=== PATIENT | female | born 1940 | race Asian ===

== ENCOUNTER 2025-07-22 00:38 | Inpatient (IN) | payer MEDICARE, MEDICAID, SELFPAY ==
[2025-07-22] VITALS (16 sets, daily range): BP systolic 99–138; BP diastolic 52–67; PULSE 56–112; RESP 14–96; TEMP 36.4–38; O2SAT 92–100; BMI 18.0
--- NOTE | 2025-07-22 00:53 | EDNOTE_ITS ---
ED SOB =RME/HPI General Chief Complaint: Shortness of Breath/Dyspnea Stated Complaint: SOB Time Seen by Provider: 07/22/25 01:11 Arrival date/time: 07/22/25 00:38 RME / HPI MD Complaint: shortness of breath Known history of: COPD Associated symptoms: cough and wheezing RME / HPI Narrative: See [facility] for Dr. Diego's HPI Documentation. Related Data Home Medications ?Medication ?Instructions ?Recorded ?Confirmed atorvastatin 10 mg tablet (Lipitor) 40 mg PO HS #0 tab s 07/31/16 07/22/25 albuterol sulfate 2.5 mg/3 mL 2.5 mg continuous nebuli zation Q8H 07/22/25 07/22/25 (0.083 %) solution for nebulization PRN shortness of b reath or wheezing amlodipine 10 mg tablet 10 mg PO .QD 07/22/25 celecoxib 200 mg capsule 400 mg PO Q12H 07/22/2506/26 Previous Rx's ?Medication ?Instructions ?Recorded apixaban 5 mg tablet (Eliquis) 5 mg PO BID #60 tabs Allergies Allergy/AdvReac Type Severity Reaction Status Date / Time No Known Allergies Allergy Unverified 07/22/25 01:25 Review of Systems Review of Systems Systems Reviewed: All systems reviewed, normal except as documented Past Medical History Past Medical History CARDIAC: Positive Cardiac Disorders, Atrial Fibrillation, Hypercholesterolemia and Hypertension RESPIRATORY: Positive Chronic Obstructive Pulmonary Disease (COPD) and Asthma Social History SECOND HAND EXPOSURE: Yes (casino smoke) ED Exam Narrative Physical exam: See [facility] for Dr. Diego's Physical Exam Documentation. Course Quality Measures none Orders Category Date Time Status CT Screening NOW Care 07/22/25 00:53 Active EKG (ED ONLY) *Do not use* NOW Care 07/22/25 00:53 Completed Saline [Insert IV] NOW Care 07/22/25 00:51 Completed Straight [In and Out Catheter] X1 Care 07/22/25 00:51 Completed EKG (ED Only) Stat Exams 07/22/25 00:53 Draft XR chest 1V portable Stat Exams 07/22/25 00:53 Completed ABG [Arterial Blood Gas] Stat Lab 07/22/25 01:50 Completed BNP [B-Type Natriuretic Peptide] Stat Lab 07/22/25 01:32 Completed Bilirubin,Direct Stat Lab 07/22/25 01:32 Completed Blood Culture (Lab) Stat Lab 07/22/25 02:00 Received CBC Stat Lab 07/22/25 01:32 Completed CMP [Comprehensive Metabolic Panel] Stat Lab 07/22/25 01:32 Completed COVID-19 Antigen (In-House) Stat Lab 07/22/25 01:41 Completed CRP [C-Reactive Protein] Stat Lab 07/22/25 01:32 Completed D-Dimer Stat Lab 07/22/25 01:32 Completed ESR [Sed Rate (ESR)] Stat Lab 07/22/25 01:32 Completed Hemoglobin A1C [Glycohemoglobin w (eAG)] Stat Lab 07/22/25 01:32 Completed Influenza A & B Rapid Panel Stat Lab 07/22/25 01:41 Completed Lactate (Lactic Acid) Stat Lab 07/22/25 01:32 Completed Lipase Stat Lab 07/22/25 01:32 Completed Magnesium Stat Lab 07/22/25 01:32 Completed Procalcitonin Stat Lab 07/22/25 01:32 Completed TSH [Thyroid Stimulating Hormone] Stat Lab 07/22/25 01:32 Completed Troponin I Stat Lab 07/22/25 01:32 Completed UA, C/S IF [Urinalysis, C/S if Indicated] Stat Lab 07/22/25 01:39 Completed Acetaminophen Tab [Tylenol Tab] Med 07/22/25 01:54 Discontinued 650 mg PO X1 ONE DiphenhydrAMINE INJ [Benadryl Inj] Med 07/22/25 00:52 Discontinued 25 mg IVP X1 STA Ibuprofen Tab [Motrin Tab] Med 07/22/25 01:54 Discontinued 400 mg PO X1 ONE Levalbuterol Rt [Xopenex Rt Sania] Med 07/22/25 00:52 Discontinued 7.5 mg INH X1 ONE Magnesium Sulfate 2 GM Ivpb [Magnesium Sulfate Ivpb] Med 07/22/25 00:52 Discontinued 2 gm in 50 ml IV X1 MethylPREDNISolone.* [SoluMEDROL Inj] Med 07/22/25 00:52 Discontinued 125 mg IVP X1 ONE Sodium Chloride Rt Sania 0.9% [NS Rt Sania 0.9%] Med 07/22/25 00:52 Active 3 ml INH PRN PRN Vital Signs Vital signs: Vital Signs Temperature 98.6 F 07/22/25 00:53 Pulse Rate 103 H 07/22/25 00:53 Respiratory Rate 18 07/22/25 00:53 Blood Pressure 99/66 07/22/25 00:53 Pulse Oximetry (%) 98 07/22/25 00:53 Oxygen Delivery Method Nasal Cannula 07/22/25 00:53 Oxygen Flow Rate 2 07/22/25 00:53 Shortness of Breath / Dyspnea MDM Narrative MDM Narrative:: This section includes all my notes and documentations, including HPI, PE, and ED course. Reji Diego MD HPI: 84 y/o female with Hx of COPD, Asthma, Atrial Fibrillation, Hypercholesterolemia, and HTN BIBA from home with about a week history of worsening cough, productive cough, purulent sputum, and dyspnea. No other complaints. ROS: All negative except as documented in HPI. Physical Exam: General: Alert and oriented. Hacking cough noted. Fever noted. Eyes: Conjunctivae and lids clear. ENT: No nasal congestion. Neck: Supple. Heart: RRR. Lungs: In respiratory distress. Decreased air movement with severe diffuse wheezing. Abdomen: Soft and nontender. Back: No CVA tenderness. Skin: Warm and dry. Neuro: Alert and oriented X 3. I reviewed EMS notes. I reviewed all returned diagnostic test results: My interpretation of the EKG is: Sinus rhythm (103 bpm) with nonspecific ST-T changes. My interpretation of the chest x-ray is infiltrates. Blood tests and urine tests remarkable for WBC 11.5, ESR 64, CRP 11.1. Covid/Influenza are negative. At this point, diagnoses include: COPD Exacerbation Pneumonia Treatment here included: Magnesium Sulfate 2 G IV Benadryl 25 mg IV Xopenex 7.5 mg neb treatment SoluMedrol 125 mg IV Motrin 400 mg SoluMedrol 125 mg IV Tylenol 650 mg No significant improvement noted. I discussed the case with our hospitalist. About the presentation and exam and diagnostics and treatments here. And need of further care in the hospital. Will accept the patient. Reji Diego MD Patient data External records reviewed:: [facility] previous records (Reviewed prior ED records from 09/16/23. Patient was seen for COPD (chronic obstructive pulmonary disease).) and EMS form Clinical information provided by:: patient and EMS Social determinants that could affect healthcare access:: none Patient has the following chronic illnesses:: Atrial Fibrillation, Hypercholesterolemia, Hypertension, Chronic Obstructive Pulmonary Disease (COPD) and Asthma How is presenting disease/condition affected by chronic disease/condition?: exacerbated by Evaluation data The following diagnostics were reviewed and interpreted by me:: lab results, radiology exam(s) and EKG tracing(s) (My interpretation of the EKG is: Sinus rhythm (103 bpm) with nonspecific ST-T changes. Reji Diego MD) Lab and/or radiology exams considered but not ordered:: None Interpretation Summary: I reviewed all returned diagnostic test results: My interpretation of the EKG is: Sinus rhythm (103 bpm) with nonspecific ST-T changes. My interpretation of the chest x-ray is infiltrates. Blood tests and urine tests remarkable for WBC 11.5, ESR 64, CRP 11.1. Covid/Influenza are negative. Medications / Prescriptions Medications or Prescriptions considered but not ordered:: None Medication administrations:: Medication Administration History Acetaminophen (Acetaminophen 325 Mg Tablet) 650 mg PO Q6H PRN PRN Reason: Fever >100.4 or pain 1-3 Stop: 08/21/25 03:29 Hydrocodone Bitart/Acetaminophen (Hydrocodone/Apap 5/325 Tablet) 1 tab PO Q4HR PRN PRN Reason: PAIN SCALE 4-6 (Moderate Stop: 07/27/25 03:29 Albuterol/Ipratropium (Albuterol/Ipratropium (Duoneb) Rt Sania 3 Ml Nebu) 3 ml INH Q6HRRT [facility] Stop: 08/21/25 06:59 Last Admin: 07/22/25 18:54 Dose: 3 ml Documented By: Admin: 07/22/25 13:49 Dose: 3 ml Documented By: Admin: 07/22/25 06:47 Dose: 3 ml Documented By: IAIN Amlodipine Besylate (Amlodipine Besylate 5 Mg Tablet) 10 mg PO QDAY [facility] Stop: 08/21/25 08:59 Last Admin: 07/22/25 09:23 Dose: 10 mg Documented By: PATRICE Apixaban (Apixaban 2.5 Mg Tablet) 2.5 mg PO BID [facility] Stop: 08/21/25 20:59 Last Admin: 07/22/25 21:22 Dose: 2.5 mg Documented By: DARCI Atorvastatin Calcium (Atorvastatin Calcium 10 Mg Tablet) 20 mg PO QDAY [facility] Stop: 08/21/25 08:59 Last Admin: 07/22/25 09:24 Dose: 20 mg Documented By: PP Dextrose (Dextrose 50%-Water Inj 50 Ml Syringe) 25 ml IV Q15MIN PRN PRN Reason: BG 50-70 responsive npo pt Stop: 08/21/25 06:18 Dextrose (Dextrose 50%-Water Inj 50 Ml Syringe) 50 ml IV Q15MIN PRN PRN Reason: BG <50 OR BG <70 & pt unresponsive Stop: 08/21/25 06:18 Glucagon (Glucagon Inj 1 Mg Vial) 1 mg IM Q15MIN PRN PRN Reason: BG <70, and no IV access Azithromycin 500 mg/ Sodium (Chloride) 250 mls @ 250 mls/hr IV QDAY [facility] Stop: 07/29/25 03:35 Last Admin: 07/22/25 10:13 Dose: 250 mls/hr Documented By: Infusion: 07/22/25 05:37 Dose: Infused Documented By: Admin: 07/22/25 04:35 Dose: 250 mls/hr Documented By: CALEB Ceftriaxone Sodium/Dextrose (Rocephin/D5w 1gm Iv Premix) 1 gm in 50 mls @ 100 mls/hr IV QDAY [facility] Stop: 07/29/25 10:45 Last Admin: 07/22/25 11:36 Dose: 100 mls/hr Documented By: PATRICE Insulin Human Lispro (Insulin Lispro (Admelog) 1 Unit/0.01 Ml Unit) 0 unit SC [facility]; Protocol Stop: 08/21/25 07:29 Last Admin: 07/22/25 16:16 Dose: Not Given Documented By: PP Non-Admin Reason: Per Protocol Admin: 07/22/25 11:36 Dose: 2 unit Documented By: PP Co-signed By: DAPHNEY Admin: 07/22/25 07:19 Dose: 2 unit Documented By: BY Co-signed By: CHELLY Morphine Sulfate (Morphine Sulf Inj 4 Mg/Ml Vial) 1 mg IVP Q4HR PRN PRN Reason: PAIN SCALE 7-10 (Severe Stop: 07/27/25 03:29 Ondansetron HCl (Ondansetron Inj 2 Mg/Ml Inj 2 Ml) 4 mg IVP Q6H PRN; Protocol PRN Reason: NAUSEA OR VOMITING Stop: 08/21/25 03:29 Pantoprazole Sodium (Pantoprazole Inj 40 Mg Vial) 40 mg IVP QDAY [facility] Stop: 08/21/25 08:59 Last Admin: 07/22/25 09:24 Dose: 40 mg Documented By: PP Prednisone (Prednisone 20 Mg Tablet) 40 mg PO QDAY [facility] Stop: 08/21/25 08:59 Last Admin: 07/22/25 09:24 Dose: 40 mg Documented By: PP Sennosides (Senna/Docusate Sod 1 Tab Tablet) 1 tab PO QDAY [facility]; Protocol Stop: 08/22/25 08:59 Sodium Chloride (Sodium Chloride Rt Sania 0.9% 3 Ml Nebu) 3 ml INH PRN PRN PRN Reason: SOLN Stop: 08/21/25 00:51 Last Admin: 07/22/25 01:43 Dose: 3 ml Documented By: PAR Discontinued Medications Acetaminophen (Acetaminophen 325 Mg Tablet) 650 mg PO X1 ONE Stop: 07/22/25 01:55 Last Admin: 07/22/25 02:14 Dose: 650 mg Documented By: CALEB Apixaban (Apixaban 2.5 Mg Tablet) 5 mg PO BID [facility] Stop: 08/21/25 08:59 Last Admin: 07/22/25 09:24 Dose: 5 mg Documented By: PATRICE Diphenhydramine HCl (Diphenhydramine Inj 50 Mg/Ml Vial) 25 mg IVP X1 [facility] Stop: 07/22/25 00:53 Last Admin: 07/22/25 02:02 Dose: 25 mg Documented By: CALEB Docusate Sodium (Docusate Sod 100 Mg Capsule) 100 mg PO QDAY [facility]; Protocol Stop: 08/21/25 08:59 Last Admin: 07/22/25 09:24 Dose: 100 mg Documented By: PP Magnesium Sulfate (Magnesium Sulfate Ivpb) 2 gm in 50 mls @ 100 mls/hr IV X1 ONE Stop: 07/22/25 01:21 Last Infusion: 07/22/25 02:41 Dose: Infused Documented By: Admin: 07/22/25 02:03 Dose: 100 mls/hr Documented By: AC Ibuprofen (Ibuprofen Tab 400 Mg Tablet) 400 mg PO X1 ONE Stop: 07/22/25 01:55 Last Admin: 07/22/25 02:14 Dose: 400 mg Documented By: AC Levalbuterol HCl (Levalbuterol Rt 1.25 Mg/0.5 Ml Nebu) 7.5 mg INH X1 ONE Stop: 07/22/25 00:53 Last Admin: 07/22/25 01:43 Dose: 7.5 mg Documented By: PAR Methylprednisolone Sodium Succinate (Methylprednisolone Sod Succ 62.5 Mg/Ml 2ml Vial) 125 mg IVP X1 ONE Stop: 07/22/25 00:53 Last Admin: 07/22/25 02:02 Dose: 125 mg Documented By: AC Potassium Phos/Sodium Phos (Naph,[facility] 1 Packet (1.5 Gm)) 1 packet PO X1 ONE Stop: 07/22/25 08:12 Last Admin: 07/22/25 09:23 Dose: 1 packet Documented By: PP Sodium Chloride (Sodium Chloride Rt 10% 15 Ml Nebu) 5 ml INH X1 ONE Stop: 07/22/25 04:01 Last Admin: 07/22/25 04:35 Dose: 5 ml Documented By: PAR Treatment here from me included: Magnesium Sulfate 2 G IV Benadryl 25 mg IV Xopenex 7.5 mg neb treatment SoluMedrol 125 mg IV Motrin 400 mg SoluMedrol 125 mg IV Tylenol 650 mg Consultations Consultation(s) initiated? (list below): Yes Consultation #1 (Physician, Specialty, Details): I discussed the case with our hospitalist. About the presentation and exam and diagnostics and treatments here. And need of further care in the hospital. Will accept the patient. Time: 03:00 Diagnosis Shortness of Breath Differential Diagnosis: acute exacerbation of chronic obstructive airways disease, congestive heart failure, community acquired pneumonia, asthma with exacerbation and pulmonary embolism Most likely diagnosis given after review of the tests above:: COPD Exacerbation Pneumonia Admission Indicated Admission indicated?: indicated Explain why admission is indicated or not indicated:: COPD Exacerbation Admission Request Was there a request for admission?: Yes Admission Attestation Admission request attestation: Discussed case with Hospitalist service regarding admission. Discussed patients ED course, exam findings, labs, and radiology results. Agreed to accept the patient for admission. Disposition Plan Disposition Plan: Admit Discharge Plan Plan Patient Disposition: Admit Acute Care w/in Hospital Problem List Clinical Impression: COPD (chronic obstructive pulmonary disease), Pneumonia
--- NOTE | 2025-07-22 00:53 | EKG_ITS ---
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
--- NOTE | 2025-07-22 00:53 | XR_ITS ---
EXAMINATION: AP chest single view TECHNIQUE: AP portable upright chest single view Date and time: July 22, 2025, 0212 hours, comparison September 16, 2023 INDICATIONS: Shortness of breath wheezing today FINDINGS: Biapical scarring Mild prominence left ventricle Interstitial disease in the lungs No lobar pneumonia IMPRESSION: Interstitial disease throughout the lungs, differential would include pneumonia, pulmonary fibrosis or both, consider high-resolution CT chest without contrast follow-up
[2025-07-22 01:39] LABS: Lactate (Lactic Acid) 1.1 mMol/L (0.4-2.0)
[2025-07-22] MEDS: LEVALBUTEROL RT 1.25 MG/0.5 ML NEBU 7.5 MG INH (01:43)
[2025-07-22] MEDS: SODIUM CHLORIDE RT SOL 0.9% 3 ML NEBU INH (01:43)
[2025-07-22 01:52] LABS: Sed Rate (ESR) 64 mm/hr (0-30)
[2025-07-22 01:53] LABS: Basophils # (Auto) 0.0 Thou/mm3 (0.0-0.2); Basophils % (Auto) 0 % (0-2.5); Eosinophils # (Auto) 0.4 Thou/mm3 (0.0-0.5); Eosinophils % (Auto) 3 % (0-10); Hematocrit 33.4 % (36.0-46.0); Hemoglobin 10.9 g/dL (12.0-16.0); Immature Granulocytes Auto 0.05 Thou/mm3 (0.00-0.00); Lymphocytes # (Auto) 0.7 Thou/mm3 (1.0-4.8); Lymphocytes % (Auto) 5 % (10-50); Mean Corpuscular HGB Conc 32.6 g/dl (31.0-37.0); Mean Corpuscular Hemoglobin 30.0 pg (25.0-35.0); Mean Corpuscular Volume 92 fL (80-100); Monocytes # (Auto) 1.0 Thou/mm3 (0.0-0.8); Monocytes % (Auto) 7 % (0-12); Neutrophils # (Auto) 11.7 Thou/mm3 (1.8-7.7); Neutrophils % (Auto) 85 % (37-80); Nucleated Red Blood Cell # 0.00 Thou/mm3 (0.00-0.00); Nucleated Red Blood Cell % 0 /100 WBC (0); Platelet Count 236 Thou/mm3 (140-440); RDW Standard Deviation 46.1 fL (36.4-46.3); Red Blood Count 3.63 Miln/mm3 (4.00-5.20); White Blood Count 13.9 Thou/mm3 (3.6-11.0)
[2025-07-22 01:55] LABS: Allen Test Performed/OK; HCO3 28 mEq/L (20-26); Inspired Oxygen, FIO2 21 %; PCO2 43 mmHg (32.0-48.0); PO2 76 mmHg (83-108); Puncture Site Right Radial; pH, Arterial 7.43 (7.35-7.45)
[2025-07-22 01:56] LABS: O2 Saturation 98 % (91-98)
[2025-07-22 02:00] LABS: D-Dimer < 250 ng/mL (<600)
[2025-07-22 02:00] LABS: Base Excess 4 (-3-3)
[2025-07-22 02:01] LABS: B-Type Natriuretic Peptide 131 pg/mL (0-100)
[2025-07-22] MEDS: MethylPREDNISolone SOD SUCC 62.5 MG/ML 2ML VIAL 125 MG IVP (02:02)
[2025-07-22] MEDS: Magnesium Sulfate 2 GM Ivpb 2 GM/50 ML BAG IV (02:03)
[2025-07-22 02:14] LABS: Glucose Estimated Average 114 mg/dL (80-131); Hemoglobin A1C 5.6 % Hgb (4.8-6.0)
[2025-07-22] MEDS: IBUPROFEN TAB 400 MG TABLET PO (02:14)
[2025-07-22] MEDS: ACETAMINOPHEN 325 MG TABLET 650 MG PO (02:14)
[2025-07-22 02:16] LABS: Collection Type, Urine Clean Catch
[2025-07-22 02:18] LABS: Alanine Aminotransferase 13 U/L (10-49); Albumin, Serum 4.6 gm/dL (3.4-4.8); Albumin/Globulin Ratio 1.8 (1.2-2.2); Alkaline Phosphatase 75 U/L (46-116); Anion Gap 8 (7-16); Aspartate Amino Transferase 22 U/L (0-34); BUN/Creatinine Ratio 15 Ratio (12-20); Bilirubin,Direct 0.4 mg/dL (0.0-0.3); Bilirubin,Total 0.9 mg/dL (0.3-1.2); Blood Urea Nitrogen 12 mg/dL (9-23); C-Reactive Protein 11.1 mg/dL (0.0-0.9); Calcium 10.0 mg/dL (8.3-10.6); Calcium (Corrected) 10.0 mg/dL (8.5-10.1); Carbon Dioxide 28.0 mMol/L (20.0-31.0); Chloride 96 mMol/L (98-107); Creatinine (Component) 0.8 mg/dL (0.6-1.3); Globulin 2.6 gm/dL (2.3-3.5); Glucose 134 mg/dL (74-106); Lipase 47 U/L (12-53); Magnesium 2.0 mg/dL (1.6-2.6); Osmolality,Calculated 266 (275-295); Potassium 4.0 mMol/L (3.4-5.1); Procalcitonin 0.17 ng/ml (0.0-0.49); Sodium 132 mMol/L (136-145); Thyroid Stimulating Hormone 1.38 uIU/mL (0.55-4.78); Total Protein 7.2 gm/dL (5.7-8.2); Troponin I < 0.020 ng/mL (0.0-0.045); eGFR > 60 See Note
[2025-07-22 02:32] LABS: Bilirubin,Urine Negative (Negative); Blood,Urine Negative (Negative); Clarity,Urine Clear (Clear/Hazy); Color,Urine Lt-Yellow (Lt Yel-Yel); Culture Indicated,Urine Not Indicated; Glucose, Urine Negative (Negative); Ketones,Urine 1+ (Negative); Leukocyte Esterase,Urine Negative (Negative); Nitrite,Urine Negative (Negative); PH,Urine 6.5 (5.0-7.0); Protein,Urine Trace (Neg - Trace); RBC,Urine 7 /hpf (0-3); Specific Gravity,Urine 1.016 (1.001-1.035); Squamous Epithelial Cell,Urine < 1 /hpf (0-5); Urobilinogen,Urine Negative mg/dL (0.0-1.0); WBC,Urine 1 /hpf (0-5)
[2025-07-22 02:34] LABS: COVID-19 Antigen (In-House) Negative (Negative); Influenza A Ag Negative; Influenza B Ag Negative
--- NOTE | 2025-07-22 03:38 | PD.RESHP ---
Documentation for date of: 07/22/25 HPI History of Present Illness History of present illness: 84 y/o female with Hx of COPD, Asthma, Atrial Fibrillation, Hypercholesterolemia, and HTN BIBA from home presents with shortness of breath, hypoxia, cough and wheezing. Admitted for acute hypoxic respiratory failure. ED Course Summary Vitals: BP 99/66 HR 103 RR 18 T 98.6F O2 98% NC Labs: WBC 13.9 Hgb 10.9 ESR 64 D dimer <250, Na 132 K 4.0 CRP 11.1 Procal 0.17 TSH 1.38 ABG pH 7.43 pCO2 43 pO2 76 HCO3 28 O2 sat 98 UA unremarkable CXR pending read (resident read, hyperinflation consistent with COPD, bilateral opacities ground glass appearances, possible right costophrenic angle blunting) Treatment: levalbuterol, methylprednisolone 125mg, benadryl 25 mg, magnesium sulfate, ibupfroen 400, acetominophen 650 Upon initial examination patient is in bed comfortable, with daughter at bedside to assist in translation. She is AOx3. They report she has had 2 days of SOB and chest pain when she coughs. She has sputum production of white/yellow phlegm. She has been tired the last few days but has not had weakness. They deny hemoptysis, hematochezia, dysuria, fevers, chills, night sweats, weight loss. She has a diagnosis of a fib since last admission but the family states she has been asymptomatic since then. Code: Full Insulin: None Medical Hx: Please see 1 liner above Medications: albuterol 2.5mg amlodipine 10mg eliquis 5mg BID atorvastatin 20mg QD celecoxib 400mg PO Allergies: NKA Surgical history: None Living: Lives with daughter Work: Retired, field crew chief Alcohol: None Cigarettes/tobacco: Lifetime of second hand smoke Recreational drugs: None All 12 systems reviewed and were negative except otherwise stated in HPI. Exam Vital Signs Temp Pulse Resp BP Pulse Ox O2 Del Method O2 Flow Rate 98.2 F 108 H 19 121/67 96 Nasal Cannula 2 07/22/25 03:07 07/22/25 03:07 07/22/25 03:07 07/22/25 03:07 07/22/25 03:07 07/22/25 00:53 07/22/25 01:43 Narrative Exam GENERAL APPEARANCE: AOx3. NAD, activity normal for age, well developed/ well nourished, no cyanosis, pallor, or diaphoresis. HEENT: Normocephalic atraumatic, no facial trauma, neck is supple. Lids/conjunctiva normal. Mucous membranes moist, nares normal, lips/teeth normal uvula midline without oral pharyngeal erythema, exudate or swelling TMs normal bilaterally. No lymphangitis/lymphedema. CARDIAC: Regular rate and rhythm, S1+S2 heard. No murmurs, rubs, or gallops noted RESPIRATORY: respiratory effort normal, speaks in full sentences, no tripod position, no accessory muscle use. Bilateral wheezes bronchial breath sounds auscultated ABDOMINAL: NBS. Soft, ND/NT. No evidence of fluid wave. No pulsatile masses on exam, rebound tenderness, Summers sign or pain over Mcburney's point. MUSCLES/EXTREMITIES: No abnormal range of motion, no swelling. DERM: Warm, pink and dry. No rashes, dermatoses, petechiae or lesions. NEUROLOGICAL: Speech is clear and appropriate. Normal level of consciousness. Gait and coordination are normal. 5/5 strength in all extremities. PSYCH: Normal mood and affect. Judgement/competence is appropriate Results: Labs 07/23/25 05:33 07/23/25 05:33 Labs: Short CBC 07/22/25 Range/Units 01:32 WBC 13.9 H (3.6-11.0) Thou/mm3 Hgb 10.9 L (12.0-16.0) g/dL Hct 33.4 L (36.0-46.0) % Plt Count 236 (140-440) Thou/mm3 BMP 07/22/25 01:32 Sodium 132 L Potassium 4.0 Chloride 96 L Carbon Dioxide 28.0 BUN 12 Creatinine 0.8 Glucose 134 H Calcium 10.0 Cardiac Enzymes 07/22/25 Range/Units 01:32 Troponin I < 0.020 (0.0-0.045) ng/mL Liver Function 07/22/25 Range/Units 01:32 Total Bilirubin 0.9 (0.3-1.2) mg/dL Direct Bilirubin 0.4 H (0.0-0.3) mg/dL AST 22 (0-34) U/L ALT 13 (10-49) U/L Alkaline Phosphatase 75 (46-116) U/L Albumin 4.6 (3.4-4.8) gm/dL Urine 07/22/25 Range/Units 01:39 Urine Color Lt-Yellow (Lt Yel-Yel) Urine Clarity Clear (Clear/Hazy) Urine pH 6.5 (5.0-7.0) Ur Specific [place] 1.016 (1.001-1.035) Urine Protein Trace (Neg - Trace) Urine Glucose (UA) Negative (Negative) ABG Interpretation ABG results: 07/22/25 01:50 ABG pH 7.43 ABG pCO2 43 ABG pO2 76 L ABG HCO3 28 H ABG O2 Saturation 98 ABG Base Excess 4 H Quality Measures Quality Measures VTE prophylaxis Advance care planning discussed with:: patient and child Medications Home Medications and Allergies Home Medications ?Medication ?Instructions ?Recorded ?Confirmed ?Type atorvastatin 10 mg tablet (Lipitor) 40 mg PO HS #0 tabs 07/31/16 07/22/25 History albuterol sulfate 2.5 mg/3 mL 2.5 mg continuous nebulization Q8H 07/22/25 07/22/25 History (0.083 %) solution for nebulization PRN shortness of breath or wheezing amlodipine 10 mg tablet 10 mg PO .QD 07/22/25 07/22/25 History celecoxib 200 mg capsule 400 mg PO Q12H 07/22/25 07/22/25 History Allergies Allergy/AdvReac Type Severity Reaction Status Date / Time No Known Allergies Allergy Unverified 07/22/25 01:25 Visit Medications Acetaminophen (Acetaminophen 325 Mg Tablet) 650 mg PO Q6H PRN PRN Reason: Fever >100.4 or pain 1-3 Stop: 08/21/25 03:29 Hydrocodone Bitart/Acetaminophen (Hydrocodone/Apap 5/325 Tablet) 1 tab PO Q4HR PRN PRN Reason: PAIN SCALE 4-6 (Moderate Stop: 07/27/25 03:29 Albuterol/Ipratropium (Albuterol/Ipratropium (Duoneb) Rt Sania 3 Ml Nebu) 3 ml INH Q6HRRT [facility] Stop: 08/21/25 06:59 Amlodipine Besylate (Amlodipine Besylate 5 Mg Tablet) 10 mg PO QDAY [facility] Stop: 08/21/25 08:59 Apixaban (Apixaban 2.5 Mg Tablet) 5 mg PO BID [facility] Stop: 08/21/25 08:59 Atorvastatin Calcium (Atorvastatin Calcium 10 Mg Tablet) 20 mg PO QDAY [facility] Stop: 08/21/25 08:59 Docusate Sodium (Docusate Sod 100 Mg Capsule) 100 mg PO QDAY [facility]; Protocol Stop: 08/21/25 08:59 Azithromycin 500 mg/ Sodium (Chloride) 250 mls @ 250 mls/hr IV QDAY [facility] Stop: 07/29/25 03:35 Morphine Sulfate (Morphine Sulf Inj 4 Mg/Ml Vial) 1 mg IVP Q4HR PRN PRN Reason: PAIN SCALE 7-10 (Severe Stop: 07/27/25 03:29 Ondansetron HCl (Ondansetron Inj 2 Mg/Ml Inj 2 Ml) 4 mg IVP Q6H PRN; Protocol PRN Reason: NAUSEA OR VOMITING Stop: 08/21/25 03:29 Pantoprazole Sodium (Pantoprazole Inj 40 Mg Vial) 40 mg IVP QDAY [facility] Stop: 08/21/25 08:59 Prednisone (Prednisone 20 Mg Tablet) 40 mg PO QDAY [facility] Stop: 08/21/25 08:59 Sodium Chloride (Sodium Chloride Rt Sania 0.9% 3 Ml Nebu) 3 ml INH PRN PRN PRN Reason: SOLN Stop: 08/21/25 00:51 Last Admin: 07/22/25 01:43 Dose: 3 ml Discontinued Medications Acetaminophen (Acetaminophen 325 Mg Tablet) 650 mg PO X1 ONE Stop: 07/22/25 01:55 Last Admin: 07/22/25 02:14 Dose: 650 mg Diphenhydramine HCl (Diphenhydramine Inj 50 Mg/Ml Vial) 25 mg IVP X1 [facility] Stop: 07/22/25 00:53 Last Admin: 07/22/25 02:02 Dose: 25 mg Magnesium Sulfate (Magnesium Sulfate Ivpb) 2 gm in 50 mls @ 100 mls/hr IV X1 ONE Stop: 07/22/25 01:21 Last Infusion: 07/22/25 02:41 Dose: Infused Ibuprofen (Ibuprofen Tab 400 Mg Tablet) 400 mg PO X1 ONE Stop: 07/22/25 01:55 Last Admin: 07/22/25 02:14 Dose: 400 mg Levalbuterol HCl (Levalbuterol Rt 1.25 Mg/0.5 Ml Nebu) 7.5 mg INH X1 ONE Stop: 07/22/25 00:53 Last Admin: 07/22/25 01:43 Dose: 7.5 mg Methylprednisolone Sodium Succinate (Methylprednisolone Sod Succ 62.5 Mg/Ml 2ml Vial) 125 mg IVP X1 ONE Stop: 07/22/25 00:53 Last Admin: 07/22/25 02:02 Dose: 125 mg Assessment & Plan Plan 84 y/o female with Hx of COPD, Asthma, Atrial Fibrillation, Hypercholesterolemia, and HTN BIBA from home presents with shortness of breath, hypoxia, cough and wheezing. Admitted for acute on chronic hypoxic respiratory failure. HAS-BLED score of 2 CHADSVASC: 4 #Acute on chronic hypoxic respiratory failure most likely 2/2 #COPD exacerbation #Asthma Ddx, COPD exacerbation, pneumonia CAP vs atypicals 2 days of SOB and chest pain when she coughs. She has sputum production of white/yellow phlegm. She has been tired the last few days but has not had weakness. They deny hemoptysis, hematochezia, dysuria, fevers, chills, night sweats, weight loss. Bilateral wheezes bronchial breath sounds auscultated. ABG pH 7.43 pCO2 43 pO2 76 HCO3 28 O2 sat 98. Elevated WBC most likely reactive to stress. Chest xray pending read but appears to have diffuse ground glass opacities. Little to no clinical suspsicion for PE. Also to be considered is legionella due to hyponatremia, however no nausea or vomiting. Plan: -Azithromycin 500mg IV QD -Duoneb 3mL -Prednisone 40mg PO QD -FUP blood cx:____ -Cocci:___ -Sputum cx:___ -ISS #Asymptomatic hyponatremia Na 132. No active symptoms Plan: -CTM renal panel #A fib Plan: -Eliquis 5mg PO BID #Hyercholesterolemia Plan: -Atorvastatin 20mg PO QD #HTN Plan: -Restarted amlodipine 10mg PO QD Health Maintenance: Code status: Full DVT prophylaxis: Eliquis GI prophylaxis: Protonix Diet: Full Bills: None Lines: PIV Supplemental O2: NC Disposition: To [facility] for acute on chronic hypoxic respiratory failure Patient seen and reviewed with attending Dr. Rodriguez. Note written by Gibson Wynne MD PGY-1 Attending Provider Attestation/Addendum After examination of the patient and review of the clinical data I feel that this patient needs admission to the hospital for further treatment/evaluation. Plan of care discussed with patient and is in agreement. I Mary Rodriguez MD, attest that I was physically present for ceballos portions of evaluation, and examined patient, labs and imagings and plan of care were discussed with IM residents team, and I agree with the findings and plans documented above.
[2025-07-22] MEDS: SODIUM CHLORIDE RT 10% 15 ML NEBU 5 ML INH (04:35)
[2025-07-22] MEDS: AZITHROMYCIN INJ 500 MG in SODIUM CHLORIDE 0.9% 250 ML 250 ML 250 MG IV ×2 (04:35→10:13)
[2025-07-22 05:00] LABS: Basophils # (Auto) 0.0 Thou/mm3 (0.0-0.2); Basophils % (Auto) 0 % (0-2.5); Eosinophils # (Auto) 0.0 Thou/mm3 (0.0-0.5); Eosinophils % (Auto) 0 % (0-10); Hematocrit 32.0 % (36.0-46.0); Hemoglobin 10.4 g/dL (12.0-16.0); Immature Granulocytes Auto 0.03 Thou/mm3 (0.00-0.00); Lymphocytes # (Auto) 0.2 Thou/mm3 (1.0-4.8); Lymphocytes % (Auto) 2 % (10-50); Mean Corpuscular HGB Conc 32.5 g/dl (31.0-37.0); Mean Corpuscular Hemoglobin 30.0 pg (25.0-35.0); Mean Corpuscular Volume 92 fL (80-100); Monocytes # (Auto) 0.2 Thou/mm3 (0.0-0.8); Monocytes % (Auto) 2 % (0-12); Neutrophils # (Auto) 11.0 Thou/mm3 (1.8-7.7); Neutrophils % (Auto) 96 % (37-80); Nucleated Red Blood Cell # 0.00 Thou/mm3 (0.00-0.00); Nucleated Red Blood Cell % 0 /100 WBC (0); Platelet Count 239 Thou/mm3 (140-440); RDW Standard Deviation 46.3 fL (36.4-46.3); Red Blood Count 3.47 Miln/mm3 (4.00-5.20); White Blood Count 11.5 Thou/mm3 (3.6-11.0)
[2025-07-22 05:27] LABS: Alanine Aminotransferase 12 U/L (10-49); Albumin, Serum 4.4 gm/dL (3.4-4.8); Albumin/Globulin Ratio 1.5 (1.2-2.2); Alkaline Phosphatase 72 U/L (46-116); Anion Gap 8 (7-16); Aspartate Amino Transferase 21 U/L (0-34); BUN/Creatinine Ratio 13 Ratio (12-20); Bilirubin,Total 0.9 mg/dL (0.3-1.2); Blood Urea Nitrogen 12 mg/dL (9-23); Calcium 9.3 mg/dL (8.3-10.6); Calcium (Corrected) 9.3 mg/dL (8.5-10.1); Carbon Dioxide 26.9 mMol/L (20.0-31.0); Chloride 96 mMol/L (98-107); Creatinine (Component) 0.9 mg/dL (0.6-1.3); Globulin 3.0 gm/dL (2.3-3.5); Glucose 200 mg/dL (74-106); Magnesium 2.8 mg/dL (1.6-2.6); Osmolality,Calculated 268 (275-295); Phosphorous 2.0 mg/dL (2.4-5.1); Potassium 4.0 mMol/L (3.4-5.1); Sodium 131 mMol/L (136-145); Total Protein 7.4 gm/dL (5.7-8.2); eGFR > 60 See Note
[2025-07-22] MEDS: ALBUTEROL/IPRATROPIUM (Duoneb) RT SOL 3 ML NEBU INH ×3 (06:47→18:54)
[2025-07-22] MEDS: INSULIN LISPRO (AdmeLOG) 1 UNIT/0.01 ML UNIT SC ×2 (07:19→11:36)
--- NOTE | 2025-07-22 08:06 | PD.RESPRO ---
Documentation for date of: 07/22/25 Subjective Subjective Interval history: patient seen and examined at bedside, her daughter Kaushik is present and helps with interpreting pt reports feeling much improved and desire to go home, wbc is downtrending, and patient is on 2LNC and saturating 100% chest xr with interstitial lung disease findings, and ct chest non con performed pending read. she continues on IV abx, sputum cultures with nl oral carly, blood cx pending. Exam Vital Signs Temp Pulse Resp BP Pulse Ox O2 Del Method O2 Flow Rate 98.2 F 90 18 119/54 L 98 Nasal Cannula 2 07/22/25 07:05 07/22/25 07:05 07/22/25 07:05 07/22/25 07:05 07/22/25 07:05 07/22/25 07:05 07/22/25 07:05 Narrative Exam GENERAL APPEARANCE: AOx3. NAD, activity normal for age, well developed/ well nourished, no cyanosis, pallor, or diaphoresis. HEENT: Normocephalic atraumatic, no facial trauma, Mucous membranes moist, nares normal, lips/teeth normal uvula midline without oral pharyngeal erythema, exudate or swelling TMs normal bilaterally. No lymphangitis/lymphedema. CARDIAC: Regular rate and rhythm, S1+S2 heard. No murmurs, rubs, or gallops noted RESPIRATORY: respiratory effort normal, speaks in full sentences, no tripod position, no accessory muscle use. Bilateral wheezes mildly. sitting upright ABDOMINAL: NBS. Soft, ND/NT. No evidence of fluid wave. No pulsatile masses on exam, rebound tenderness, Summers sign or pain over Mcburney's point. MUSCLES/EXTREMITIES: No abnormal range of motion, no swelling. DERM: Warm, pink and dry. No rashes, dermatoses, petechiae or lesions. NEUROLOGICAL: Speech is clear and appropriate. Normal level of consciousness. Gait and coordination are normal. 5/5 strength in all extremities. PSYCH: Normal mood and affect. Judgement/competence is appropriate Objective Labs 07/22/25 04:20 07/22/25 04:20 Labs: Laboratory Results - last 24 hr 07/22/25 07/22/25 07/22/25 01:32 01:39 01:41 WBC 13.9 H RBC 3.63 L Hgb 10.9 L Hct 33.4 L MCV 92 MCH 30.0 MCHC 32.6 RDW Std Deviation 46.1 Plt Count 236 Neut % (Auto) 85 H Lymph % (Auto) 5 L Page % (Auto) 7 Eos % (Auto) 3 Baso % (Auto) 0 Neut # (Auto) 11.7 H Lymph # (Auto) 0.7 L Page # (Auto) 1.0 H Eos # (Auto) 0.4 Baso # (Auto) 0.0 Immature Gran # (Auto) 0.05 H Absolute Nucleated RBC 0.00 Immature Gran % 0 Nucleated RBC % 0 ESR 64 H D-Dimer < 250 Puncture Site ABG pH ABG pCO2 ABG pO2 ABG HCO3 ABG O2 Saturation ABG Base Excess FiO2 Sodium 132 L Potassium 4.0 Chloride 96 L Carbon Dioxide 28.0 Anion Gap 8 BUN 12 Creatinine 0.8 Estim Creat Clear Calc Not Performed. eGFR > 60 BUN/Creatinine Ratio [address] Glu mg/dL 114 Hemoglobin A1c 5.6 Calculated Osmolality 266 L Lactic Acid 1.1 Calcium 10.0 Corrected Calcium 10.0 Phosphorus Magnesium 2.0 Total Bilirubin 0.9 Direct Bilirubin 0.4 H AST 22 ALT 13 Alkaline Phosphatase 75 Troponin I < 0.020 C-Reactive Prot, Quant 11.1 H B-Natriuretic Peptide 131 H Total Protein 7.2 Albumin 4.6 Globulin 2.6 Albumin/Globulin Ratio 1.8 Lipase 47 Procalcitonin 0.17 TSH 1.38 Ur Collection Type Clean Catch Urine Color Lt-Yellow Urine Clarity Clear Urine pH 6.5 Ur Specific [place] 1.016 Urine Protein Trace Urine Glucose (UA) Negative Urine Ketones 1+ A Urine Blood Negative Urine Nitrite Negative Urine Bilirubin Negative Urine Urobilinogen (Auto) Negative Ur Leukocyte Esterase Negative Urine RBC 7 H Urine WBC 1 Ur Squamous Epith Cells < 1 Urine Bacteria None Ur Culture Indicated? Not Indicated Influenza A (Rapid) Negative Influenza B (Rapid) Negative SARS-CoV-2 Ag (Rapid) Negative 07/22/25 07/22/25 01:50 04:20 WBC 11.5 H RBC 3.47 L Hgb 10.4 L Hct 32.0 L MCV 92 MCH 30.0 MCHC 32.5 RDW Std Deviation 46.3 Plt Count 239 Neut % (Auto) 96 H Lymph % (Auto) 2 L [place] % (Auto) 2 Eos % (Auto) 0 Baso % (Auto) 0 Neut # (Auto) 11.0 H Lymph # (Auto) 0.2 L [place] # (Auto) 0.2 Eos # (Auto) 0.0 Baso # (Auto) 0.0 Immature Gran # (Auto) 0.03 H Absolute Nucleated RBC 0.00 Immature Gran % 0 Nucleated RBC % 0 ESR D-Dimer Puncture Site Right Radial ABG pH 7.43 ABG pCO2 43 ABG pO2 76 L ABG HCO3 28 H ABG O2 Saturation 98 ABG Base Excess 4 H FiO2 21 Sodium 131 L Potassium 4.0 Chloride 96 L Carbon Dioxide 26.9 Anion Gap 8 BUN 12 Creatinine 0.9 Estim Creat Clear Calc Not Performed. eGFR > 60 BUN/Creatinine Ratio 13 Glucose [address] Glu mg/dL Hemoglobin A1c Calculated Osmolality 268 L Lactic Acid Calcium 9.3 Corrected Calcium 9.3 Phosphorus 2.0 L Magnesium 2.8 H Total Bilirubin 0.9 Direct Bilirubin AST 21 ALT 12 Alkaline Phosphatase 72 Troponin I C-Reactive Prot, Quant B-Natriuretic Peptide Total Protein 7.4 Albumin 4.4 Globulin 3.0 Albumin/Globulin Ratio 1.5 Lipase Procalcitonin TSH Ur Collection Type Urine Color Urine Clarity Urine pH Ur Specific [place] Urine Protein Urine Glucose (UA) Urine Ketones Urine Blood Urine Nitrite Urine Bilirubin Urine Urobilinogen (Auto) Ur Leukocyte Esterase Urine RBC Urine WBC Ur Squamous Epith Cells Urine Bacteria Ur Culture Indicated? Influenza A (Rapid) Influenza B (Rapid) SARS-CoV-2 Ag (Rapid) ABG Interpretation ABG results: 07/22/25 01:50 ABG pH 7.43 ABG pCO2 43 ABG pO2 76 L ABG HCO3 28 H ABG O2 Saturation 98 ABG Base Excess 4 H Quality Measures Quality Measures VTE prophylaxis Advance care planning discussed with:: patient Assessment & Plan Assessment Current Active Medications: Generic Name Dose Route Start Last Admin Trade Name Freq PRN Reason Stop Dose Admin Acetaminophen 650 mg 07/22/25 03:30 Acetaminophen 325 Mg Tablet PO 08/21/25 03:29 Q6H PRN Fever >100.4 or pain 1-3 Hydrocodone Bitart/Acetaminophen 1 tab 07/22/25 03:30 Hydrocodone/Apap 5/325 Tablet PO 07/27/25 03:29 Q4HR PRN PAIN SCALE 4-6 (Moderate Albuterol/Ipratropium 3 ml 07/22/25 07:00 07/22/25 06:47 Albuterol/Ipratropium (Duoneb) Rt Sania 3 Ml Nebu INH 08/21/25 06:59 3 ml Q6HRRT [facility] Administration Amlodipine Besylate 10 mg 07/22/25 09:00 Amlodipine Besylate 5 Mg Tablet PO 08/21/25 08:59 QDAY [facility] Apixaban 5 mg 07/22/25 09:00 Apixaban 2.5 Mg Tablet PO 08/21/25 08:59 BID [facility] Atorvastatin Calcium 20 mg 07/22/25 09:00 Atorvastatin Calcium 10 Mg Tablet PO 08/21/25 08:59 QDAY [facility] Dextrose 25 ml 07/22/25 06:19 Dextrose 50%-Water Inj 50 Ml Syringe IV 08/21/25 06:18 Q15MIN PRN BG 50-70 responsive npo pt Dextrose 50 ml 07/22/25 06:19 Dextrose 50%-Water Inj 50 Ml Syringe IV 08/21/25 06:18 Q15MIN PRN BG <50 OR BG <70 & pt unresponsive Docusate Sodium 100 mg 07/22/25 09:00 Docusate Sod 100 Mg Capsule PO 08/21/25 08:59 QDAY [facility] Protocol Glucagon 1 mg 07/22/25 06:19 Glucagon Inj 1 Mg Vial IM Q15MIN PRN BG <70, and no IV access Azithromycin 500 mg/ Sodium 250 mls @ 250 mls/hr 07/22/25 03:36 07/22/25 05:37 Chloride IV 07/29/25 03:35 Infused QDAY [facility] Infusion Insulin Human Lispro 0 unit 07/22/25 07:30 07/22/25 07:19 Insulin Lispro (Admelog) 1 Unit/0.01 Ml Unit SC 08/21/25 07:29 2 unit AC [facility] Administration Protocol Morphine Sulfate 1 mg 07/22/25 03:30 Morphine Sulf Inj 4 Mg/Ml Vial IVP 07/27/25 03:29 Q4HR PRN PAIN SCALE 7-10 (Severe Ondansetron HCl 4 mg 07/22/25 03:30 Ondansetron Inj 2 Mg/Ml Inj 2 Ml IVP 08/21/25 03:29 Q6H PRN NAUSEA OR VOMITING Protocol Pantoprazole Sodium 40 mg 07/22/25 09:00 Pantoprazole Inj 40 Mg Vial IVP 08/21/25 08:59 QDAY [facility] Prednisone 40 mg 07/22/25 09:00 Prednisone 20 Mg Tablet PO 08/21/25 08:59 QDAY [facility] Sodium Chloride 3 ml 07/22/25 00:52 07/22/25 01:43 Sodium Chloride Rt Sania 0.9% 3 Ml Nebu INH 08/21/25 00:51 3 ml PRN PRN Administration SOLN Plan 84 y/o female with Hx of COPD, Asthma, Atrial Fibrillation, Hypercholesterolemia, and HTN BIBA from home presents with shortness of breath, hypoxia, cough and wheezing. Admitted for acute on chronic hypoxic respiratory failure. continues on iv abx and breathing treatments. leukocytosis downtrending. HAS-BLED score of 2 CHADSVASC: 4 #Acute on chronic hypoxic respiratory failure most likely 2/2 #COPD exacerbation #Hx of asthma Ddx, COPD exacerbation, pneumonia CAP vs atypicals 2 days of SOB and chest pain when she coughs. She has sputum production of white/yellow phlegm. She has been tired the last few days but has not had weakness. They deny hemoptysis, hematochezia, dysuria, fevers, chills, night sweats, weight loss. Bilateral wheezes bronchial breath sounds auscultated. ABG pH 7.43 pCO2 43 pO2 76 HCO3 28 O2 sat 98. Elevated WBC most likely reactive to stress. leukocytosis is downtrending, and wheezing is improved with steroids and breathing treatments. Chest xray: Biapical scarring Mild prominence left ventricle Interstitial disease in the lungs, No lobar pneumonia Interstitial disease throughout the lungs, differential would include pneumonia, pulmonary fibrosis or both, consider high-resolution CT chest without contrast follow-up CT chest wo con: pending read. Plan: -Azithromycin 500mg IV QD (07/22- ) 3 day course -Ceftriaxone 1gm QD (07/22- -Duoneb 3mL -Prednisone 40mg PO QD -FUP blood cx:____ -Cocci____ (low suspician for cocci) -Sputum cx:normal oral carly -ISS, given on steroids. #Asymptomatic hyponatremia Na 131. No active symptoms, likely 2/2 poor po intake corrected Na with elevated glucose is 133. Plan: -CTM renal panel -Encourage PO intake #Hx of A fib Plan: -Eliquis 2.5mg PO BID (decreased dosing given pt bmi and age) #Hx of hyercholesterolemia Plan: -Atorvastatin 20mg PO QD #Hx of HTN Plan: -Restarted amlodipine 10mg PO QD #Fall pt daughter kaushik reports that pt had fall earlier this week per discussion with patient and PT, pt states that she does not walk and that she uses wheelchair to get around everywhere, [place] - PT evaluated patient, no further pt indicated if pt is wheelchair bound at baseline. Health Maintenance: Code status: Full DVT prophylaxis: Eliquis GI prophylaxis: Protonix Bowel Reg: senna docusate scheduled qd Diet: Full Bills: None Lines: PIV Supplemental O2: NC Disposition: To [facility] for acute on chronic hypoxic respiratory failure Plan discussed with my attending Dr. Beckie Vargas MD PGY1 Attending Provider Attestation/Addendum I have seen and examined the patient. I was physically present for the [place]eball[place] portions of the services provided including history, physical exam, diagnosis, treatment plans and orders. I agree with assessment and plan of care as documented by residents. Patient seen and examined at bedside this morning. She is 84 years old female with past medical history of COPD, asthma, atrial fibrillation, hypercholesterolemia and hypertension who presented with complaint of shortness of breath, cough and wheezing. Patient appears comfortable and denies any new complaints at bedside. Saturating well on 2 L nasal cannula. Continues to have mild bilateral wheezing. WBC count noted to improve from 13.9 yesterday to 11.5 today. Chest x-ray obtained yesterday showed interstitial disease throughout the lungs concerning for pneumonia versus pulmonary fibrosis. We will obtain CT chest. Continues to be on IV antibiotics, steroids, DuoNebs. Phosphate was 2.0, repleted accordingly. Dosing of Eliquis decreased. Even though this this note was carefully revised there may still be minor errors in purse seining hand due to voice recognition software. Marianna Butts MD
--- NOTE | 2025-07-22 08:26 | PC.NURSE ---
report given to rahul
[2025-07-22] MEDS: NAPH,KPH MBDB 1 PACKET (1.5 GM) PO (09:23)
[2025-07-22] MEDS: APIXABAN 2.5 MG TABLET 5 MG PO (09:24)
[2025-07-22] MEDS: ATORVASTATIN CALCIUM 10 MG TABLET 20 MG PO (09:24)
[2025-07-22] MEDS: DOCUSATE SOD 100 MG CAPSULE PO (09:24)
--- NOTE | 2025-07-22 10:47 | XR_ITS ---
Examination: CT chest, without intravenous contrast. Sagittal and coronal 2-D reconstructions. Exam date and time: July 22, 2025, 1226 hours INDICATIONS: Difficulty breathing this week, interstitial disease on chest x-ray today CTDI:vol (mGy) 5.31 DLP: (mGycm) 164 Technique: Multiple 3.0 mm axial sections of the chest to been obtained. Bone and lung density settings are obtained. Sagittal and coronal 2-D reconstructions have been obtained. Low dose protocols were performed. One or more of the following dose reduction techniques were used; automated exposure control, adjustment of the mA and/or KV according to patient size, use of iterative reconstruction technique. Findings: Thoracic aortic calcification, no thoracic aortic aneurysmal dilatation Pulmonary artery segments are enlarged, pulmonary artery hypertension pattern Significant calcification left anterior descending and circumflex right coronary arteries Mild enlargement cardiac contour with trace pericardial thickening Stellate density in the right upper lobe most likely a pleural-parenchymal scarring 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 Masslike area in the right lower lobe medially, 26 mm Chronic osteoporotic compressions T12-L1, severe osteopenia IMPRESSION: Significant coronary artery calcification Stellate density in the right upper lobe most likely pleural-parenchymal scarring 26 mm masslike area in the medial right lower lobe, follow-up chest imaging is needed to exclude early pulmonary neoplasm 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
[2025-07-22] MEDS: cefTRIAXone/D5w 1gm IV premix 1 GM/50 ML BAG IV (11:36)
--- NOTE | 2025-07-22 13:37 | PC.PT ---
PT eval only. Patient is able to move in bed and transfer xI which appears to be her baseline as she is mostly wheelchair bound and bed bound for ~2-3 years. Patient does not want further therapy services. Patient is safe to continue to transfer to a bedside commode with 1 staff assist. RN made aware.
[2025-07-22] MEDS: APIXABAN 2.5 MG TABLET PO (21:22)
[2025-07-23] VITALS (8 sets, daily range): BP systolic 112–144; BP diastolic 57–70; PULSE 79–100; RESP 14–24; TEMP 36.6; O2SAT 93–100
[2025-07-23 06:23] LABS: Basophils # (Auto) 0.0 Thou/mm3 (0.0-0.2); Basophils % (Auto) 0 % (0-2.5); Eosinophils # (Auto) 0.0 Thou/mm3 (0.0-0.5); Eosinophils % (Auto) 0 % (0-10); Hematocrit 30.5 % (36.0-46.0); Hemoglobin 10.0 g/dL (12.0-16.0); Immature Granulocytes Auto 0.06 Thou/mm3 (0.00-0.00); Lymphocytes # (Auto) 0.7 Thou/mm3 (1.0-4.8); Lymphocytes % (Auto) 5 % (10-50); Mean Corpuscular HGB Conc 32.8 g/dl (31.0-37.0); Mean Corpuscular Hemoglobin 30.5 pg (25.0-35.0); Mean Corpuscular Volume 93 fL (80-100); Monocytes # (Auto) 0.5 Thou/mm3 (0.0-0.8); Monocytes % (Auto) 4 % (0-12); Neutrophils # (Auto) 12.0 Thou/mm3 (1.8-7.7); Neutrophils % (Auto) 90 % (37-80); Nucleated Red Blood Cell # 0.00 Thou/mm3 (0.00-0.00); Nucleated Red Blood Cell % 0 /100 WBC (0); Platelet Count 265 Thou/mm3 (140-440); RDW Standard Deviation 47.2 fL (36.4-46.3); Red Blood Count 3.28 Miln/mm3 (4.00-5.20); White Blood Count 13.3 Thou/mm3 (3.6-11.0)
[2025-07-23] MEDS: ALBUTEROL/IPRATROPIUM (Duoneb) RT SOL 3 ML NEBU INH ×2 (06:41→12:52)
[2025-07-23 06:49] LABS: Alanine Aminotransferase 12 U/L (10-49); Albumin, Serum 4.1 gm/dL (3.4-4.8); Albumin/Globulin Ratio 1.5 (1.2-2.2); Alkaline Phosphatase 70 U/L (46-116); Anion Gap 9 (7-16); Aspartate Amino Transferase 16 U/L (0-34); BUN/Creatinine Ratio 10 Ratio (12-20); Bilirubin,Total 0.5 mg/dL (0.3-1.2); Blood Urea Nitrogen 8 mg/dL (9-23); Calcium 9.8 mg/dL (8.3-10.6); Calcium (Corrected) 9.8 mg/dL (8.5-10.1); Carbon Dioxide 28.0 mMol/L (20.0-31.0); Chloride 98 mMol/L (98-107); Creatinine (Component) 0.8 mg/dL (0.6-1.3); Estimated Creatinine Clearance 33.3 mL/min (>60); Globulin 2.8 gm/dL (2.3-3.5); Glucose 119 mg/dL (74-106); Magnesium 2.5 mg/dL (1.6-2.6); Osmolality,Calculated 269 (275-295); Phosphorous 3.7 mg/dL (2.4-5.1); Potassium 4.3 mMol/L (3.4-5.1); Sodium 135 mMol/L (136-145); Total Protein 6.9 gm/dL (5.7-8.2); eGFR > 60 See Note
--- NOTE | 2025-07-23 08:48 | PD.RESPRO ---
Documentation for date of: 07/23/25 Exam Vital Signs Temp Pulse Resp BP Pulse Ox O2 Del Method O2 Flow Rate 97.9 F 90 24 H 132/65 H 97 Nasal Cannula 2 07/23/25 07:43 07/23/25 07:43 07/23/25 07:43 07/23/25 07:43 07/23/25 07:43 07/23/25 07:43 07/23/25 07:43 Objective Labs 07/23/25 05:33 07/23/25 05:33 Labs: Laboratory Results - last 24 hr 07/23/25 05:33 WBC 13.3 H RBC 3.28 L Hgb 10.0 L Hct 30.5 L MCV 93 MCH 30.5 MCHC 32.8 RDW Std Deviation 47.2 H Plt Count 265 Neut % (Auto) 90 H Lymph % (Auto) 5 L [place] % (Auto) 4 Eos % (Auto) 0 Baso % (Auto) 0 Neut # (Auto) 12.0 H Lymph # (Auto) 0.7 L [place] # (Auto) 0.5 Eos # (Auto) 0.0 Baso # (Auto) 0.0 Immature Gran # (Auto) 0.06 H Absolute Nucleated RBC 0.00 Immature Gran % 1 H Nucleated RBC % 0 Sodium 135 L Potassium 4.3 Chloride 98 Carbon Dioxide 28.0 Anion Gap 9 BUN 8 L Creatinine 0.8 Estim Creat Clear Calc 33.3 L eGFR > 60 BUN/Creatinine Ratio 10 L Glucose 119 H D Calculated Osmolality 269 L Calcium 9.8 Corrected Calcium 9.8 Phosphorus 3.7 Magnesium 2.5 Total Bilirubin 0.5 AST 16 ALT 12 Alkaline Phosphatase 70 Total Protein 6.9 Albumin 4.1 Globulin 2.8 Albumin/Globulin Ratio 1.5 ABG Interpretation ABG results: 07/22/25 01:50 ABG pH 7.43 ABG pCO2 43 ABG pO2 76 L ABG HCO3 28 H ABG O2 Saturation 98 ABG Base Excess 4 H Quality Measures Quality Measures VTE prophylaxis Assessment & Plan Assessment Current Active Medications: Generic Name Dose Route Start Last Admin Trade Name Freq PRN Reason Stop Dose Admin Acetaminophen 650 mg 07/22/25 03:30 Acetaminophen 325 Mg Tablet PO 08/21/25 03:29 Q6H PRN Fever >100.4 or pain 1-3 Hydrocodone Bitart/Acetaminophen 1 tab 07/22/25 03:30 Hydrocodone/Apap 5/325 Tablet PO 07/27/25 03:29 Q4HR PRN PAIN SCALE 4-6 (Moderate Albuterol/Ipratropium 3 ml 07/22/25 07:00 07/23/25 06:41 Albuterol/Ipratropium (Duoneb) Rt Sania 3 Ml Nebu INH 08/21/25 06:59 3 ml Q6HRRT [place] Administration Amlodipine Besylate 10 mg 07/22/25 09:00 07/22/25 09:23 Amlodipine Besylate 5 Mg Tablet PO 08/21/25 08:59 10 mg QDAY [facility] Administration Apixaban 2.5 mg 07/22/25 21:00 07/22/25 21:22 Apixaban 2.5 Mg Tablet PO 08/21/25 20:59 2.5 mg BID [place] Administration Atorvastatin Calcium 20 mg 07/22/25 09:00 07/22/25 09:24 Atorvastatin Calcium 10 Mg Tablet PO 08/21/25 08:59 20 mg QDAY [facility] Administration Dextrose 25 ml 07/22/25 06:19 Dextrose 50%-Water Inj 50 Ml Syringe IV 08/21/25 06:18 Q15MIN PRN BG 50-70 responsive npo pt Dextrose 50 ml 07/22/25 06:19 Dextrose 50%-Water Inj 50 Ml Syringe IV 08/21/25 06:18 Q15MIN PRN BG <50 OR BG <70 & pt unresponsive Glucagon 1 mg 07/22/25 06:19 Glucagon Inj 1 Mg Vial IM Q15MIN PRN BG <70, and no IV access Azithromycin 500 mg/ Sodium 250 mls @ 250 mls/hr 07/22/25 03:36 07/22/25 10:13 Chloride IV 07/29/25 03:35 250 mls/hr QDAY [facility] Administration Ceftriaxone Sodium/Dextrose 1 gm in 50 mls @ 100 mls/hr 07/22/25 10:46 07/22/25 11:36 Rocephin/D5w 1gm Iv Premix IV 07/29/25 10:45 100 mls/hr QDAY [facility] Administration Insulin Human Lispro 0 unit 07/22/25 07:30 07/22/25 16:16 Insulin Lispro (Admelog) 1 Unit/0.01 Ml Unit SC 08/21/25 07:29 Not Given AC [facility] Protocol Morphine Sulfate 1 mg 07/22/25 03:30 Morphine Sulf Inj 4 Mg/Ml Vial IVP 07/27/25 03:29 Q4HR PRN PAIN SCALE 7-10 (Severe Ondansetron HCl 4 mg 07/22/25 03:30 Ondansetron Inj 2 Mg/Ml Inj 2 Ml IVP 08/21/25 03:29 Q6H PRN NAUSEA OR VOMITING Protocol Pantoprazole Sodium 40 mg 07/22/25 09:00 07/22/25 09:24 Pantoprazole Inj 40 Mg Vial IVP 08/21/25 08:59 40 mg QDAY [facility] Administration Prednisone 40 mg 07/22/25 09:00 07/22/25 09:24 Prednisone 20 Mg Tablet PO 08/21/25 08:59 40 mg QDAY [facility] Administration Sennosides 1 tab 07/23/25 09:00 Senna/Docusate Sod 1 Tab Tablet PO 08/22/25 08:59 QDAY [facility] Protocol Sodium Chloride 3 ml 07/22/25 00:52 07/22/25 01:43 Sodium Chloride Rt Sania 0.9% 3 Ml Nebu INH 08/21/25 00:51 3 ml PRN PRN Administration SOLN
[2025-07-23] MEDS: SENNA/DOCUSATE SOD 1 TAB TABLET PO (08:57)
[2025-07-23] MEDS: ATORVASTATIN CALCIUM 10 MG TABLET 20 MG PO (08:57)
[2025-07-23] MEDS: AZITHROMYCIN INJ 500 MG in SODIUM CHLORIDE 0.9% 250 ML 250 ML 250 MG IV (09:01)
[2025-07-23] MEDS: APIXABAN 2.5 MG TABLET PO (09:01)
[2025-07-23] MEDS: cefTRIAXone/D5w 1gm IV premix 1 GM/50 ML BAG IV (09:02)
--- NOTE | 2025-07-23 09:18 | PC.CC ---
Addendum entered by Emily Harper RN 07/23/25 09:36: [facility] accepted and booked, soc 07/25. Original Note: [facility] ref sent out, waiting for responses. will need to send DC summary and dc instructions when available.
--- NOTE | 2025-07-23 11:37 | ESDS_ITS ---
Planned Discharge Date 07/23/25 DS: Providers Provider Date of admission: 07/22/25 03:30 Primary care physician: Daniel Shankar MD Admitting Provider: Mary Rodriguez MD Attending Provider on Admission: Mary Rodriguez MD Consults: 07/22/25 06:21 Referral Physical Therapy Routine Comment: Physician Instructions: Attending Provider on DC: Marianna Butts MD Discharging Provider: Mike Louis DO DS: Diagnosis Discharge Diagnosis (1) COPD (chronic obstructive pulmonary disease): Status: Acute (2) Community acquired pneumonia: Status: Acute Problem List Completed Was Problem List Reviewed/Reconciled?: Yes Hospital Course Hospital Course Hospital course: Hospital Course: 84-year-old female past medical history of COPD, asthma brought in by ambulance from home with shortness of breath on 07/22/2025. She also had associated hypoxia, cough, and wheezing. She was found to have a arterial pO2 of 76. Chest x-ray showed interstitial lung disease and biapical scarring. Patient was admitted for acute hypoxic respiratory failure secondary to COPD exacerbation versus community-acquired pneumonia. The patient was treated with ceftriaxone and azithromycin and her white blood cell count down trended. Her oxygenation improved, her blood cultures were negative. Of note, the patient had a CT scan on 07/22/2025 that showed a 26 mm masslike area in the right medial lower lobe. It also showed mild to moderate interstitial pulmonary fibrosis throughout the lungs. The patient is stable for discharge with home health. She will be discharged on 1 more tablet of azithromycin and a course of Augmentin. 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 Beckie OLIVIER and my senior resident Dr. Jose OLIVIER PGY-2. Mike Louis DO PGY-1 Time Spent with Patient Time attestation: Total time spent providing and/or coordinating discharge services: 39 minutes Time spent: Greater than 30 minutes Home Health Home Health Referral Orders: 07/23/25 09:06 Home Health Referral Routine Reason For Exam: CPOD exacerbation Home-Bound The patient must either because of illness or injury, need the aid of supportive devices such as crutches, canes, wheelchairs, and walkers; the use of special transportatio n; or the assistance of another person in order to leave their place of residence; OR have a condition such that leaving his or her home is medically contraindicated. In addition, the patient also meets the following criteria: patient is normally unable to leave the home and leaving home requires considerable taxing effort. Addendum to Home Health Certification Practitioner's Certification: I certify that the patient has been under my care in the hospital and the care of attending physician (see below). We had a ampu-sv-[id number] encounter on (see date below). My clinical findings indicate that the patient is home bound per the above criteria and the Home Health Services noted in these orders are medically necessary. The primary reason for the cbik-[id number] encounter is related to the fact that the patient requires home health services. Date Certifying Mfjq-ga-Aiix Physician Encounter: 07/22/25 Physician's Name who will Assume Oversight for Services: Daniel Shankar Physician's Phone No.who will Assume Oversight for Service: [employer] - Community Resources: No PT to Evaluate: Yes PT to evaluate and provide a treatmnet plan to increase patient's mobility and strength. Wound Care: No IV Therapy: No RN Safety Evaluation: Yes RN to evaluate and create a plan of care that will produce positive outcomes. Palliative Treatment: No Palliative treatment and evaluate the need for hospice. Home Health Aide - Personal Care: No Home Health Aide to assist with any ADL's. Exam Vital Signs Temp Pulse Resp BP Pulse Ox O2 Del Method O2 Flow Rate 97.9 F 83 24 H 133/59 H 97 Nasal Cannula 2 07/23/25 07:43 07/23/25 09:02 07/23/25 07:43 07/23/25 09:02 07/23/25 07:43 07/23/25 07:43 07/23/25 07:43 Narrative Exam General: Awake and in no acute distress. Conversational and non-toxic appearing. Neurologic: GCS 15. Alert and oriented x3, no gross neurological deficit, and patient able to move all 4 extremities. HEENT: Normocephalic, atraumatic, mucous membranes moist. Pupils reactive to light. Heart: Regular rate and rhythm, normal S1 and S2, no murmurs. Lungs: Diffuse wheezes bilaterally. Abdomen: Soft, nondistended, nontender, positive bowel sounds. No guarding or rebound tenderness. Extremities: No edema. 2+ radial and dorsalis pedis pulses bilaterally. Skin: Warm. Dry. No rash or ecchymoses. Discharge Plan Plan Patient Disposition: Home w/HOME HEALTH Patient condition on transfer: Stable Care Plan Goals: Instructions: * Take your Azithromycin 500 mg and Amoxicillin-Clavulanate 875-125mg as prescibed * Continue taking all other home medications as prescribed * Follow-up with PCP within 1-2 weeks of discharge * If you do not have a PCP, then you can follow-up at the [facility] * Return to the emergency room if symptoms worsen Prescriptions/Referrals Prescriptions/Med Rec: New azithromycin 500 mg tablet 500 mg PO QDAY 1 Days Qty: 1 0RF amoxicillin-pot clavulanate 875-125 mg tablet 1 tab PO BID Qty: 12 0RF Eliquis 2.5 mg tablet 2.5 mg PO BID 30 Days Qty: 60 0RF Continued atorvastatin [Lipitor] 10 MG tablet 40 mg PO HS Qty: 0 amlodipine 10 mg tablet 10 mg PO .QD Patient Comments: TAKE 1 TABLET BY MOUTH EVERY DAY FOR 30 DAYS albuterol sulfate 2.5 mg /3 mL (0.083 %) solution for nebulization 2.5 mg continuous nebulization Q8H PRN (Reason: shortness of breath or wheezing) Patient Comments: INHALE 1 VIAL VIA NEBULIZER 3 TIMES A DAY NEEDED celecoxib 200 mg capsule 400 mg PO Q12H Patient Comments: TAKE 1 CAPSULE BY MOUTH EVERY 12 HOURS FOR 30 DAYS. TAKE WITH FOOD Discontinued Eliquis 5 mg tablet 5 mg PO BID Qty: 60 0RF Referrals: Daniel Shankar MD [Primary Care Provider, Family Practice] Patient/Caregiver Discharge Instructions Other Discharge Activity Instructions:: Take your Azithromycin 500 mg and Amoxicillin-Clavulanate 375-125mg as prescibed ? Continue taking all other home medications as prescribed ? Follow-up with PCP within 1-2 weeks of discharge ? If you do not have a PCP, then you can follow-up at the [facility] ? Return to the emergency room if symptoms worsen Education Materials: COPD: Coping with Fatigue, Shortness of Breath Maximizing ... Print Language: Kyrgyz Stand Alone Forms: [employer]uma Award Info., Patient Portal Info Letter Discharge Order Discharge Orders: Discharge (Routine); Ordered 07/23/25 Ordered By: Hector Garcia Quality Discharge Quality Measures VTE prophylaxis Attestestation MD Attestation I have seen and examined the patient. I was physically present for the ceballos portions of the services provided including history, physical exam, diagnosis, treatment plans and orders. I agree with assessment and plan of care as documented by residents. Even though this this note was carefully revised there may still be minor errors in account director due to voice recognition software. Marianna Butts MD
--- NOTE | 2025-07-23 13:56 | PC.SS ---
Adriana Trinidad is a 84 year old female admitted to [facility] for COPD Exacerbation. SS conducted vbedside contact with the pt, but pt did not have her hearing aides and unable to communicate properly with SS. Therefore, SS reached out to dtr Brigitte Dhaliwal [phone], no answer, VM left. In attempt to complete initial assessment, SS then contacted pt other dtr Rashida Edge [phone]. Rashida confirmed demographics, reported pt lives with her dtrs. Pt is independent with ADLs, pt. uses a rollator walker and has O2 at home as well baseline 2L. Pts PCP is Dr. Shankar [facility], last vist was 3 months ago, and pharmacy of choice is [facility]. DC options discussed and they wish for pt to return home. Family will provide transportation. DC plan: Home DM: Dtr Brigitte Georges [phone]/Rashida Edge [phone] PCP: Dr. Shankar
[2025-07-23 15:14] LABS: Cocci Serology, IgM Negative (Negative)
[2025-07-25 14:03] LABS: Cocci Serology, IgG Negative (Negative)
== END 2025-07-23 13:46 | disposition home health service (06) | DRG 190 ==
LOC: SERX 03:19 → SERHOLD 04:00 → S3SX 08:34
PROVIDERS: Admitting Provider Student in an Organized Health Care Education/Training Program; Emergency Provider Emergency Medicine; PCP Family Medicine; Visit Provider Student in an Organized Health Care Education/Training Program
DX: J44.1 Chronic obstructive pulmonary disease with (acute) exacerbation (principal); J18.9 Pneumonia, unspecified organism; J96.21 Acute and chronic respiratory failure with hypoxia; E87.1 Hypo-osmolality and hyponatremia; I48.91 Unspecified atrial fibrillation; I10 Essential (primary) hypertension; J44.0 Chronic obstructive pulmonary disease with (acute) lower respiratory infection; E78.00 Pure hypercholesterolemia, unspecified; Z79.01 Long term (current) use of anticoagulants; Z79.899 Other long term (current) drug therapy
CPT/HCPCS: 36415; 36600; 51701; 71045; 71250; 80053; 81001; 82248; 82803; 83036; 83605; 83690; 83735; 83880; 84100; 84145; 84443; 84484; 85025; 85379; 85652; 86140; 86331; 86635; 87040; 87205; 87502; 87811; 89220; 93005; 93225; 94640; 94644; 96365; 96375; 97162; 99285; A9270; J0456; J0696; J1200; J1815; J2470; J2919; J3475; J7050; J7512